=== PATIENT | male | born 1960 | race Caucasian/White ===

== ENCOUNTER 2017-06-24 12:11 | Day surgery (SDC) | payer BC ==
[2017-06-24] MEDS ORDERED: LIDOCAINE 2% MDV (20MG/ML) 20ML VIAL IV ONE (14:00)
[2017-06-24] MEDS ORDERED: PROPOFOL 10 MG/ML VIAL IV ONE (14:00)
[2017-06-24] MEDS ORDERED: MIDAZOLAM HCL 2MG/2ML VIAL IV ONE (14:00)
--- NOTE | 2017-06-30 16:10 | Operative Note ---
DATE OF SURGERY: 06/24/2017 OPERATION: COLONOSCOPY with cold forceps polypectomy. PREOPERATIVE DIAGNOSIS: Diverticulitis. POSTOPERATIVE DIAGNOSES: 1. Sigmoid diverticulosis, moderate. 2. Rectal polyp. ESTIMATED BLOOD LOSS: Minimal. SPECIMENS: Rectal polyp. PREPARATION QUALITY: Good. COMPLICATIONS: None apparent. PROCEDURE: After informed consent was obtained from the patient, he was placed in the left lateral decubitus position in the endoscopy suite, sedated and monitored by the department of anesthesia. Digital rectal exam was unremarkable. A well-lubricated [id number] colonoscope was inserted into the rectum and advanced to the cecum. Preparation quality was good. The cecum, ileocecal valve, appendiceal orifice, ascending colon, and transverse colon were free of inflammatory changes, mass lesions, or polyp. The sigmoid colon did demonstrate moderate diverticular changes. No inflammation was readily apparent. The rectum revealed a diminutive polyp removed with a cold forceps. Minimal bleeding was noted. J-turn views of the anorectum were unremarkable. RECOMMENDATIONS: The patient should resume a high-fiber diet. He should undergo a repeat colonoscopy in 5-10 years pending tissue histology. As always, thank you for allowing me to participate in the healthcare of your patients. CC: GRACIELA DUTTA D.O. MY
== END 2017-06-24 14:23 | disposition home or self-care (01) ==
LOC: HOP 12:11
PROVIDERS: ATTEND Internal Medicine Gastroenterology
DX: K57.30 Diverticulosis of large intestine without perforation or abscess without bleeding (principal); K62.1 Rectal polyp